=== PATIENT | male | born 2005 | race Hispanic/Latino ===

== ENCOUNTER 2024-10-25 04:08 | Emergency (ER) | payer OTHER ==
[~2024-10-25] VITALS: Ht 162.6 cm; Wt 62.2 kg
[2024-10-25 08:14] VITALS: BP 121/59; TEMP 98.3; O2SAT 99
== END 2024-10-25 08:15 | disposition home or self-care (01) ==
LOC: M ED 04:08
DX: S01.01XA Laceration without foreign body of scalp, initial encounter (principal); Y92.019 Unspecified place in single-family (private) house as the place of occurrence of the external cause; Y93.9 Activity, unspecified; Y99.9 Unspecified external cause status; W01.10XA Fall on same level from slipping, tripping and stumbling with subsequent striking against unspecified object, initial encounter; F10.10 Alcohol abuse, uncomplicated